=== PATIENT | female | born 1945 | race African-American/Black ===

== ENCOUNTER → 2017-02-25 | Day surgery (SDC) | payer MEDICARE ==
[~2017-02-25] MED LIST: AMLO5TAB2 PO; ASCO500T2 PO; ASPI-482 PO; CYAN10005 PO; DOCU-27 PO; FENTANYL PF 100 MCG/2 ML VIAL. IV PRN; FERR325T72 PO; GABA-586 PO; IV RINGERS,LACTATED 1000ML 1,000 ML IV SCH; LEVO500T38 PO; LIDOCAINE 1% 1 ML SYRINGE. ID PRN; LIDOCAINE 2% PF Vial for OR 5 ML VIAL. ONE; LISI-338 PO; MELO-156 PO; METH-38 PO; METH4TAB2 PO; METO-269 PO; MORP15TA3 PO; OMEP40CA5 PO; OXYC-250 PO; OXYC-323 PO; OXYC1TAB7 PO; PANT40TA5 PO; PROCHLORPERAZINE 10 MG/2 ML VIAL. IV PRN; PROPOFOL 40 ML IV ONE
--- NOTE | 2017-02-25 09:01 | PDOC1 ---
HISTORY & PHYSICAL H&P Nava Francisco [id number] 1945 02/12/2017 02:00 PM 11/10 [employer] [facility], [facility] OUR PATIENTS COME FIRST [address] [place], [place] [id number] Ph. [phone] Patient: Nava Francisco Date of : 1945 Date: 02/12/2017 2:00 PM Visit Type: Consult This 71 year old female presents for Blood in stool. History of Present Illness: 1. Blood in stool Quality: FOBT positive. Pertinent negatives include abdominal distention, abdominal pain, bloating, change in bowel habits, constipation, nausea, rectal pain and weight loss. Additional information: Patient was discovered to have heme positive stool. Patient had colonoscopy in 2010 and also had EGD which had revealed. duodenal ulcer. INTAKE COMMENTS: Intake Comments: Nurse Note: the pt is here today due to blood in the stool, the pt states that she went in for a physical and it was positive. The pt states that she has never seen blood in her stool. Her last colon was in 2010. PROBLEM LIST: Problem Description Onset Date Lumbar disc disease 01/30/2016 Controlled diabetes mellitus 01/30/2016 Medicare advantage coverage 02/14/2014 Bacterial UTI 03/13/2016 Spinal enthesopathy of lumbar region 10/04/2015 Rash and nonspecific skin eruption 07/02/2016 Epigastric abdominal pain 10/11/2015 Chronic pain 07/07/2012 Constipation 02/12/2013 Diabetes mellitus 08/15/2014 Neuropathic pain of both feet 09/29/2015 Spinal enthesopathy, lumbosacral region 10/23/2015 Primary osteoarthritis of both knees 07/17/2016 Trochanteric bursitis of right hip 04/04/2016 Polyneuropathy associated with underlying disease 06/14/2016 Lumbar spinal stenosis 12/18/2015 Benign essential hypertension 02/20/2011 Hyperlipidemia 02/20/2011 Backache 02/20/2011 Abnormal glucose level 02/20/2011 Postprocedural state finding 02/20/2011 PAST MEDICAL/SURGICAL HISTORY (Detailed) Disease/disorder Onset Date Management Date Comments Back surgery 2009 Cholecystectomy 2010 borderline diabetes 2010 Colonic polyp-hyperplastic polyp colonoscopy with polypectomy 09/24/2011 Degenerative disc disease Gastritis EGD with biopsy 09/24/2011 Hyperlipidemia Hypertension low back pain 2016 Spinal fusion, lumbar Neuropathy DIAGNOSTICS HISTORY: Test Ordered Interpretation Result completed COLONOSCOPY AND BIOPSY 09/18/2011 BX. segement of small intestine with focal hyperplastic lymphoid nodule and areas of glandular hyperplasia, suggestive of polyp, showing no evidence of crypt abscess formation, granulomatous change, or dysplasia, ileocecal valve. Recall 5 years-KR 09/24/2011 [facility] GI ENDOSCOPY, DIAGNOSIS 09/18/2011 BX: chronic gastritis with focus of mucosal erosion. Segments of glandular epithelium and small area of squamous epithelium with mild inflammation, with superficial aggregate of mucoid material on epithelial surface. 09/24/2011 CAT scan of abdomen 10/18/2011 Abnormal Imp: Diverticulosis. Fibroids. No acute abnormality. 10/18/2011 CAT scan of pelvis 10/18/2011 Abnormal Imp: Diverticulosis. Fibroids. No acute abnormality. 10/18/2011 Magnetic resonance cholangiopancreatography (MRCP) 05/18/2013 Imp: 1.0 cm cyst ir hemangioma of the (L) lobe of the liver. Unremarkable MRCP. 05/21/2013 Test Ordered Ordering Comments Modifier COLONOSCOPY AND BIOPSY 09/18/2011 [facility] GI ENDOSCOPY, DIAGNOSIS 09/18/2011 CAT scan of abdomen 10/18/2011 Gastroenterology CAT scan of pelvis 10/18/2011 Gastroenterology Magnetic resonance cholangiopancreatography (MRCP) 05/18/2013 Medications (Active): Started Medication Directions Instruction Stopped 09/05/2016 amitriptyline 10 mg tablet take 1 tablet by oral route every day 09/05/2016 amlodipine 5 mg tablet take 1 tablet (5MG) by oral route every day 09/05/2016 Aspir-81 81 mg tablet,delayed release take 1 tablet (81MG) by oral route every day 09/05/2016 atorvastatin 20 mg tablet take 1 tablet by oral route every day 10/30/2016 Flonase 50 mcg/actuation nasal spray,suspension spray 1 spray by intranasal route 2 times every day in each nostril 09/05/2016 hydrochlorothiazide 12.5 mg tablet take 1 tablet by oral route every day 10/15/2016 hydrocortisone 2.5 % topical cream apply by topical route 2 times every day to the affected area(s) 09/05/2016 losartan 100 mg tablet take 1 tablet (100MG) by oral route every day 09/05/2016 metoprolol succinate ER 50 mg tablet,extended release 24 hr take 1 tablet (50MG) by oral route every day 01/24/2017 Percocet 5 mg-325 mg tablet 2 po qid 11/22/2016 Protonix 40 mg tablet,delayed release TAKE [1] TABLET BY MOUTH ONCE DAILY FOR ACID REFLUX 10/30/2016 Zyrtec 10 mg capsule take 1 each by oral route every day for 1 morning Allergies: Ingredient Reaction Medication Name Comment NO KNOWN ALLERGIES REVIEW OF SYSTEMS System Neg/Pos Details Constitutional Negative Chills, fever, malaise and weight loss. ENMT Negative Sore throat. Eyes Negative Double vision. Respiratory Negative Dyspnea and wheezing. Cardio Negative Chest pain and irregular heartbeat/palpitations. GI Positive See HPI. GI Negative Abdominal distention, abdominal pain, bloating, change in bowel habits, constipation, nausea, see HPI and rectal pain. Negative Dysuria and hematuria. Endocrine Negative Cold intolerance and heat intolerance. Psych Negative Anxiety. Integumentary Negative Hives and rash. MS Negative Joint pain. Juice/Lymph Negative Easy bleeding and easy bruising. Allergic/Immuno Negative Food allergies. VITAL SIGNS Time BP mm/Hg Pulse /min Resp /min Temp F Ht ft Ht in Ht cm Wt lb Wt kg BMI kg/ m2 BSA m2 O2 Sat% 2:15 PM 138/74 97.1 5.0 4.00 162.56 190.40 86.364 32.68 Time Measured by 2:15 PM Shayla Bryan PHYSICAL EXAM: Exam Findings Details Constitutional Normal Well developed. Eyes Normal Conjunctiva - Right: Normal, Left: Normal. Sclera - Right: Normal, Left: Normal. Nasopharynx Normal Lips/teeth/gums - Normal. Neck Exam Normal Inspection - Normal. Thyroid gland - Normal. Respiratory Normal Inspection - Normal. Auscultation - Normal. Cardiovascular Normal Regular rate and rhythm. No murmurs, gallops, or rubs. Vascular Normal Pulses - Carotids: Normal, Femoral: Normal, Dorsalis pedis: Normal. Abdomen Normal Inspection - Normal. Anterior palpation - No guarding. No abdominal tenderness. No hepatic enlargement. No splenic enlargement. No hernia. No Ascites. Skin Normal Inspection - Normal. Extremity Normal No edema. Psychiatric Normal Oriented to time, place, person, and situation. Appropriate mood and effect. The patient was checked out at 2:15 PM by Shayla Bryan. Assessment/Plan # Detail Type Description 1. Assessment Gastrointestinal hemorrhage, unspecified gastrointestinal hemorrhage type (K92.2). Patient Plan schedule colonoscopy and EGD at [facility] Plan Orders Further diagnostic evaluations ordered today include(s) Colonoscopy and EGD to be performed today. She is to schedule a follow-up visit with Kush Medellin MD upon completion of work-up Electronically signed by: Kush Medellin MD 02/12/2017 02:29 PM Document generated by: Kush Medellin 02/12/2017 02:29 PM Gulshan Adams MD, Family Practice; Seth Lombardi MD Internal Medicine; Destiny De Leon MD, Internal Medicine; Ben Medellin MD Internal Medicine; Kush Medellin MD, Gastroenterology; Terrence Davis MD, Rheumatology, S. Ryan Wray, Physical Medicine/Rehab JJacky Roberto APRN ------ 02/25/17 Patient seen and examined. No change in H&P. KUSH MEDELLIN MD Feb 25, 2017 09:01
--- NOTE | 2017-02-25 10:21 | PDOC4 ---
GI OP Report - Dr. Wilson Date/Time DATE: 02/25/17 TIME: 10:20 Attending Physician Kale Wilson MD Referring Physician Indications Suspected upper gastrointestinal bleeding in patient with chronic blood loss Pre-Op See the Anesthesia note for documentation of the administered medications Procedures Upper GI endoscopy+bx Findings - LA Grade A reflux esophagitis. Biopsied. - Normal stomach. - Normal examined duodenum. Biopsied. Plan - Discharge patient to home. - Patient has a contact number available for emergencies. The signs and symptoms of potential delayed complications were discussed with the patient. Return to normal activities tomorrow. Written discharge instructions were provided to the patient. - Resume regular diet. - Await pathology results. - Return to my office in 2 weeks. KALE WILSON MD Feb 25, 2017 10:21
--- NOTE | 2017-02-25 10:26 | PDOC4 ---
GI OP Report - Dr. Wilson Date/Time DATE: 02/25/17 TIME: 10:25 Attending Physician Kale Wilson MD Referring Physician Indications Heme positive stool, Gastrointestinal bleeding Pre-Op See the Anesthesia note for documentation of the administered medications Procedures Colonoscopy Findings - Diverticulosis in the sigmoid colon. - The examination was otherwise normal on direct and retroflexion views. - No specimens collected. Plan - Discharge patient to home. - Patient has a contact number available for emergencies. The signs and symptoms of potential delayed complications were discussed with the patient. Return to normal activities tomorrow. Written discharge instructions were provided to the patient. - Resume regular diet. - Continue present medications. - Repeat colonoscopy in 10 years for surveillance. - Return to my office as needed. KALE WILSON MD Feb 25, 2017 10:26
[2017-02-25 10:45] VITALS: BP 196/93
--- NOTE | 2017-02-26 13:06 | PATHOLOGY ---
PATHOLOGY REPORT * * * * * * * * FINAL DIAGNOSIS: A. Small bowel biopsy: - No significant pathologic abnormalities. B. Esophageal biopsy: - Segment of esophagogastric mucosa showing mild chronic inflammation. COMMENT: Sections of the small bowel biopsy reveal a segment of small intestine mucosa. Where best oriented, the mucosal villi appear normal. There are no sprue-like changes or significant inflammatory changes. Sections of the esophageal biopsy reveal a segment of esophagogastric mucosa. The squamous esophageal mucosa is mildly hyperplastic. The gastric mucosa shows mild chronic inflammation. There is no evidence of Clemente's change, dysplasia, or malignancy. (JPM:mgdulce; d/t: 02/26/17) REPORT ELECTRONICALLY SIGNED BY: José Miguel Allen M.D. DATE/TIME: 02/26/2017 13:05 * * * * * * * * GROSS PATHOLOGY: A. Received in formalin labeled "Nava Francisco, small bowel biopsy," is a segment of lloyd soft tissue measuring 0.5 cm in maximum dimension. The specimen is submitted entirely in cassette A1. B. Received in formalin labeled "Nava Francisco, esophagus biopsy," is a segment of lloyd soft tissue measuring 0.5 cm in maximum dimension. The specimen is submitted entirely in cassette B1. (CAA; 02/25/2017) INITIAL CPT CODE(S): A; 43370 B; 75864 Professional services [place] [facility] [place] [address] Technical services performed by [facility] at [address] [place] [address] [address] [address]. SPECIMEN(S) RECEIVED: A.Small bowel biopsy B.Esophageal biopsy CLINICAL HISTORY: Heme + stool PATIENT: NAVA FRANCISCO /AGE: 12 1945 (Age: 71) PATIENT #: [id number] ALT CASE #: SPECIMEN COLLECTION DATE: 02/25/2017 SPECIMEN RECEIVED DATE: 02/25/2017 [facility] - [address] [place] [address] - PHONE: [phone] * * * END OF REPORT * * *
== END | disposition home or self-care (01) ==
LOC: ENDOS 08:31
PROVIDERS: ATTEND Internal Medicine Gastroenterology
DX: K57.30 Diverticulosis of large intestine without perforation or abscess without bleeding (principal); K92.2 Gastrointestinal hemorrhage, unspecified; K21.0 Gastro-esophageal reflux disease with esophagitis; E78.00 Pure hypercholesterolemia, unspecified; I10 Essential (primary) hypertension; M19.90 Unspecified osteoarthritis, unspecified site; Z72.89 Other problems related to lifestyle; Z87.440 Personal history of urinary (tract) infections
CPT/HCPCS: 43239; 45378; J2704; 88305

== ENCOUNTER → 2019-02-18 | Outpatient (CLI) | payer MEDICARE ==
[2017-02-25 10:45] VITALS: BP 196/93
[~2019-02-18] MED LIST changes: +AMLO5TAB10 PO; -AMLO5TAB2 PO; +DOCU-109 PO; -DOCU-27 PO; -FENTANYL PF 100 MCG/2 ML VIAL. IV PRN; -GABA-586 PO; +GABA300C18 PO; -IV RINGERS,LACTATED 1000ML 1,000 ML IV SCH; -LEVO500T38 PO; +LEVO500T59 PO; -LIDOCAINE 1% 1 ML SYRINGE. ID PRN; -LIDOCAINE 2% PF Vial for OR 5 ML VIAL. ONE; -MELO-156 PO; +MELO7.5T29 PO; -OXYC-250 PO; -OXYC-323 PO; +OXYC1TAB15 PO; +OXYC1TAB22 PO; -PROCHLORPERAZINE 10 MG/2 ML VIAL. IV PRN; -PROPOFOL 40 ML IV ONE
--- NOTE | 2019-02-18 17:03 | RAD ---
3 view study of the left foot Clinical indications: Left foot pain and swelling laterally since Friday. No known injury. FINDINGS: No acute fracture or dislocation or lytic process is seen. No periosteal reaction is evident. IMPRESSION: No acute osseous abnormality. Electronically signed by: Malachi Wheeler MD (02/18/2019 5:00 PM) [facility]
== END | disposition home or self-care (01) ==
LOC: RAD 12:19
PROVIDERS: ATTEND Physical Medicine & Rehabilitation
DX: M79.672 Pain in left foot (principal); R22.42 Localized swelling, mass and lump, left lower limb
CPT/HCPCS: 36415; 73630; 84550